=== PATIENT | female | born 1975 ===

== ENCOUNTER 2024-08-06 10:41 | Day surgery (SDC) | payer OTHER, SELFPAY ==
[2024-07-27 09:51] VITALS: BMI 28.5
--- NOTE | 2024-08-06 | PATH_ITS ---
[facility] Accession Number: [id number] No. of containers..01 Tissue . 01 Material submitted: . endometrium - ENDOMETRIAL CURETTINGS . 01 Diagnosis: ENDOMETRIUM, CURETTINGS: Fragments of benign endometrial polyps. Background proliferative phase endometrium. Negative for atypia, hyperplasia, or malignancy. [facility] 08/13/2024 1339 Local . 01 Electronically signed: . Michael Vasques MD, Pathologist NPI- [id number] . 01 Gross description: . The specimen is received in formalin with two patient identifiers and endometrial curettings, and consists of a 2.0 x 1.0 x 0.4 cm aggregate of blood-tinged mucus and mujica soft tissue, which is filtered and entirely submitted in cassette A1. Additionally received in the same container is a 3.0 x 2.0 x 0.5 cm aggregate of white, morcellated soft tissue admixed with clotted blood, which is entirely submitted in cassette A2. ([id number]) /V 08/10/2024 1446 Local . 01 Pathologist provided ICD-10: N93.9, N84.0 . 01 CPT . 034496 Specimen Comment: A courtesy copy of this report has been sent to [facility] Pathology Performed at: [address] [facility], [place], [place] [id number] MD Anthony Arcos MD Phone: [phone]
[2024-08-06 11:15] VITALS: BP 111/74; PULSE 100; RESP 17; TEMP 36.8; O2SAT 100; BMI 28.6
[2024-08-06] MEDS: LACTATED RINGERS 1,000 ML 42 ML IV (11:31)
[2024-08-06] MEDS: SCOPOLAMINE 1 PATCH TOP (11:32)
[2024-08-06] MEDS: FAMOTIDINE 20 MG/2 ML VIAL IV (11:32)
--- NOTE | 2024-08-06 12:48 | PM.PREOP ---
Pre-operative Note Interval Note History & Physical reviewed/Exam performed by Physician: Yes Changes to H&P: No ASA Class (for procedural sedation): II
--- NOTE | 2024-08-06 13:55 | SUR.OPER ---
Lithotomy on padded OR bed, head on pillow, arms secured on padded arm boards at <90 degrees abduction. Legs secured in padded yellow fins stirrups.
[2024-08-06] MEDS: SILVER NITRATE STICK 1 EACH TOP (14:00)
--- NOTE | 2024-08-06 14:11 | P.OP_ITS ---
Operative Date/Time/Diagnoses Date of procedure: 08/06/24 Time of procedure: 14:11 Pre-op diagnosis: AUB-P/L Post-op diagnosis: same Procedure & Clinicians Procedure: hysteroscopy, myosure polypectomy, mirena IUD placement Same procedure(s) as scheduled: Yes Indications: AUB-P/L Surgeon: Millie Lopez Click Yes if Unassisted: Yes Anesthesia Type: General Operative Notes Findings: normal external female genitalia cervix retracted anteriorly intrauterine cavity with bilateral ostia visualized, large R lateral polyp, large posterior fibroid <10% excursion within endometrial cavity Closure Type: not applicable Specimen(s): other (endometrial curretings ) Prosthetic devices, grafts, tissues, transplants, or devices: mirena IUD obtained from office supply - S/N [id number] Exp Lot [id number] Applied: none Estimated Blood Loss (mL): 2 Procedure in detail: Pt was taken to the operating room, transferred to OR table and anesthesia was induced with placement of LMA.? Pt had her legs placed in Davis stirrups and an exam under anesthesia was performed. The patient was prepped and draped in a sterile fashion.? A time out was performed. ?The bladder was emptied via straight catheter in sterile fashion.? A sterile speculum was inserted into the vagina.? The cervix was visualized and grasped anteriorly using a single tooth tenaculum.? The uterus sounded to 9cm and the cervical os was serially dilated using Rivers dilators up to 17f to allow for passage of the hysteroscope.? The 5mm 0 degree hysteroscope was then inserted into the uterus with findings as noted.? The small Myosure device was introduced and the endometrium including visualized pathology was fractionally resected under direct visualization. The hysteroscope was removed and the uterus was sharply curetted until a gritty texture was noted throughout.? The mirena obtained from office supply was placed per operations expert instructions, strings trimmed to 3cm. The tenaculum was removed and hemostasis was noted at insertion sites.? The speculum was removed and hemostasis was again noted to be excellent.? The patient then had her legs taken out of stirrups.? The patient tolerated the procedure well and without dif ficulty.? The patient was awakened from anesthesia and taken to PACU in stable condition. ? Complications: none Post-operative Condition: stable Disposition: PACU Plan for aftercare: anticipate dc to home pending postoperative recovery, routine outpatient f/u as scheduled
[2024-08-06 14:14] VITALS: BP 103/54; PULSE 88; RESP 12; TEMP 36.3; O2SAT 94
[2024-08-06 14:18] VITALS: BP 104/55; PULSE 81; RESP 16; O2SAT 95
[2024-08-06] MEDS: ACETAMINOPHEN IV 1,000 MG/100 ML VIAL 400 MG IV (14:18)
[2024-08-06 14:23] VITALS: BP 109/54; PULSE 77; RESP 12; O2SAT 95
[2024-08-06 14:28] VITALS: BP 103/52; PULSE 72; RESP 13; TEMP 36.3; O2SAT 95
== END 2024-08-06 15:09 | disposition home or self-care (01) ==
PROVIDERS: PCP Student in an Organized Health Care Education/Training Program; Referring Provider Obstetrics & Gynecology; Visit Provider Obstetrics & Gynecology
PROC: 0UDB8ZZ Extraction of Endometrium, Via Natural or Artificial Opening Endoscopic (ICD-10-PCS; CPT 58558; principal; 2024-08-06 12:15)
DX: N93.9 Abnormal uterine and vaginal bleeding, unspecified (principal); N84.0 Polyp of corpus uteri; Z30.430 Encounter for insertion of intrauterine contraceptive device
CPT/HCPCS: 58558; 58300; 81025; C1713; J0131; J1100; J1885; J2250; J2405; J2704; J3010; J7298